=== PATIENT | female | born 1975 | race Caucasian/White ===

== ENCOUNTER → 2016-04-14 | Outpatient (CLI) | payer BC | LOC: CIMAGING 10:50 | PROVIDERS: ATTEND Obstetrics & Gynecology | DX: R10.2 Pelvic and perineal pain (principal) | CPT/HCPCS: 76856-PO ==

== ENCOUNTER → 2017-02-15 | Outpatient (CLI) | payer BC | LOC: BMCIMAGING 08:18 | PROVIDERS: ATTEND Internal Medicine | DX: Z12.31 Encounter for screening mammogram for malignant neoplasm of breast (principal) | CPT/HCPCS: G0202 ==

== ENCOUNTER 2017-10-22 16:30 | Emergency (ER) | payer BC ==
[2017-10-22 16:34] VITALS: BP 129/81
--- NOTE | 2017-10-22 17:19 | EDPHY ---
H & P Time Seen by Provider: 10/22/17 16:56 HPI/ROS: CHIEF COMPLAINT: Left index finger skin avulsion HISTORY OF PRESENT ILLNESS: 42-year-old female via private vehicle with up-to- date tetanus complaining of skin avulsion to left index finger when she was cutting cilantro. Occurred shortly prior to arrival. PHYSICAL EXAM (Prior to examination, patient consented to physical exam, hands were washed and my usual and customary physical exam procedures followed) 1) GENERAL: Well-developed, well-nourished, alert and oriented. Appears to be in no acute distress. 2) HEAD: Normocephalic 3) HEENT: sclera anicteric 4) LUNGS: Breathing comfortably. 5) SKIN: Left index finger distal phalanx superficial skin avulsion on the volar aspect that does not involve the nail bed with no laceration. This is very superficial. 6) MUSCULOSKELETAL: No shortening or malrotation 7) NEUROLOGIC: Full sensation. Smoking Status: Current some day smoker Constitutional: Initial Vital Signs Temperature (C) 36.7 C 10/22/17 16:32 Heart Rate 79 10/22/17 16:32 Respiratory Rate 18 10/22/17 16:32 Blood Pressure 129/81 H 10/22/17 16:32 O2 Sat (%) 98 10/22/17 16:32 Allergies/Adverse Reactions: No Known Allergies Allergy (Unverified 10/22/17 16:34) Home Medications: Medication Instructions Recorded Amphet Asp and D/Amphet [Adderall 10 mg PO 10/22/17 10 MG (*)] Levothyroxine [Synthroid 75 mcg 75 mcg PO DAILY06 10/22/17 (*)] MDM/Departure - MDM Procedures: Procedure: Wound management I explained the indications, risks and benefits for anesthetic administration. Verbal consent was obtained from the patient. The left index finger was anesthetized using 0.5% bupivicaine without epinephrine digital nerve block. After anesthetic administered the patient was observed for a period of time and had no apparent adverse effects. Surgicel dressing placed. ED Course/Re-evaluation: Patient has superficial skin avulsion. She brought with her the piece of tissue which is avulsed. However this is a very superficial nonviable piece of tissue. Wound be allowed to heal via secondary intention. She feels comfortable being discharged. Usual and customary wound precautions and instructions provided. I saw this patient independently based on established practice protocols. Care of patient under supervision of secondary supervising physician Dr Brantley . - Depart Disposition: Home, Routine, Self-Care Clinical Impression: Avulsion of skin of finger Qualifiers: Encounter type: initial encounter Qualified Code(s): S61.209A - Unspecified open wound of unspecified finger without damage to nail, initial encounter Condition: Good Instructions: Skin Avulsion (ED) Additional Instructions: Return to the ER if you develop redness, swelling, discharge, warmth to the wound, red streaks going up your arm, or any other symptoms that concern you. Referrals: Yuly Griffin MD [Primary Care Provider] - 2-3 days, call for appt.
== END 2017-10-22 17:35 | disposition home or self-care (01) ==
DX: S61.201A Unspecified open wound of left index finger without damage to nail, initial encounter (principal); Y93.G9 Activity, other involving cooking and grilling; W26.0XXA Contact with knife, initial encounter

== ENCOUNTER → 2018-02-16 | Outpatient (CLI) | payer BC | LOC: FIMAGING 08:39 | PROVIDERS: ATTEND Internal Medicine | DX: Z12.31 Encounter for screening mammogram for malignant neoplasm of breast (principal) ==